=== PATIENT | female | born 1990 | race Caucasian/White ===

== ENCOUNTER 2016-06-11 15:18 | Emergency (ER) | payer BC ==
--- NOTE | ~2016-06-11 | CN ---
Consultation Report [facility] [address] [place]. [address] NAME: APRIL CORTÉS : 86 STATUS : [facility]#: [id number] AGE: 25 ADM/REG DATE : 06/11/16 MR#: [id number] REPORT SERV DATE: 06/11/16 DICTATED BY: ANNALISA SERVIN DATE: 06/11/16 REPORT STATUS : Draft TRANSCRIBED BY: GUS DATE: 06/11/16 NEUROLOGICAL EVALUATION CODE STROKE DATE OF CONSULTATION: 06/11/2016 HISTORY OF PRESENT ILLNESS: This is a 25-year-old white female, who presented to the emergency room with complaints of left-sided weakness. The patient's symptoms apparently started two hours prior to arrival in the emergency room. She stated that she was having weakness and numbness and while in the emergency room, was refusing to move her left arm and left leg to command. The patient did not have any facial weakness. The patient stated she has history of migraines; however, today prior to the onset of her symptoms, she did not have a headache. She was seen by Dr. Gautam, neurologist from [place], who apparently has been treating her for seizure disorder. The patient has been on Keppra 1000 mg twice a day, which as per the patient also was chosen to control her migraines. The patient stated that her migraines at times is so severe that she requires "lidocaine infusion." The patient's stated that her neurologist was going to refer her to pain management to address her recurrent pain related to her migraines. The patient moved here from [facility]. Approximately three years ago, she had a similar episode which took her to the emergency room. She was given tPA; however, as per the patient, her MRI and all the studies were normal. The patient has history of anxiety, stated that she has not been able to obtain any of her medications that she was not able to have an appointment with psychiatric services. FAMILY HISTORY: Significant for history of migraines. SOCIAL HISTORY: The patient smokes one pack of cigarettes per day. Denied use of alcohol. She has one 7 years old daughter. REVIEW OF SYSTEMS: As mentioned in the history of present illness, the patient denied history of trauma. Denied history of recent seizures, her last seizure was six months ago. She stated they were "petit mal." The patient was taken for an emergency CT of the head as per Code Stroke protocol. CT scan of the head was normal. CTA of the neck and brain showed no evidence of abnormalities or occlusion of major vessels. The patient's NIH scale was reported by nursing staff to be 6; however, difficult to evaluate since the patient had decreased voluntary effort on testing. PHYSICAL EXAMINATION: VITAL SIGNS: Blood pressure 115/85, pulse was 103, respirations 20, temperature afebrile. HEAD AND NECK: Showed head to be normocephalic. There was no evidence of trauma. Auscultation of the neck showed no evidence of bruits. EYE: Sclerae were not icteric. Conjunctiva was pink. Consultation Report [address] [address] NAME: APRIL CORTÉS : 86 STATUS : [facility] PAT#: [id number] AGE: 25 ADM/REG DATE : 06/11/16 MR#: [id number] REPORT SERV DATE: 06/11/16 DICTATED BY: ANNALISA SERVIN DATE: 06/11/16 REPORT STATUS : Draft TRANSCRIBED BY: GUS DATE: 06/11/16 ENT: Unremarkable. NECK: Supple. There was no Kernig or Brudzinski. Cervical range of motion was not impaired. CHEST: Symmetrical. LUNGS: Clear to auscultation. HEART: Regular S1, S2. Borderline sinus tachycardia. EXTREMITIES: No clubbing, cyanosis. There is no peripheral edema. ABDOMEN: Mildly obese, soft and nontender. NEUROLOGICAL: The patient was alert, sitting up in bed. I observed the patient moving from the stretcher to the MRI portable table with no difficulty. The patient was standing erect, moved without any help to the portable MRI table; however, she was holding her left hand slightly flexed. The patient refused to move her left arm including performing a shoulder shrug stated that it was not moving. The patient was able to lift her left knee and was complaining of lower back pain. The patient's spontaneous movements were observed in the left foot and left toes. No abnormal movements, jerking movements, or tonic-clonic activities seen. The tone in the left was normal, was not decreased or increased. Deep tender reflexes were symmetrical throughout 1+ over 2. Babinski signs were not elicitable. Sensory exam as per the patient decreased sensation to pinprick light touch including vibration which was split in the midline. The left side of the skull, as per the patient, she was not able to perceive any vibration from the tuning fork, but was able to perceive vibration on the right side of her forehead skull. Cerebellar exam, [id number] and heel to-amezcua on the right was normal. The patient was not moving or performing the maneuver on the left. Her speech was fluent. There was no evidence of aphasia or dysarthria. Thought content and mood appeared appropriate. The patient stated she does not know why she is not moving her left arm. She however, stated that she would be happy to follow with her neurologist and go home if we provide her with a name of psychiatrist or psychiatric services she can follow with since she has been under a great deal of stress. She had recently moved here and has been under a lot of stress. IMPRESSION: No evidence of neurological deficit that could be placed in the category of a stroke or even hemiplegic migraine. The patient at present does not have headache. Her lack of voluntary effort suggest possibly conversion disorder. The patient admits to being under a great deal of stress. All the tests performed. CT of the head, CTA of the head and neck, and the MRI showed no evidence of significant abnormalities to suggest presence of an acute or past strokes. I will leave disposition up to the emergency room physician and if needed, to the IMS Team. The patient was advised to return to see her private neurologist and deleterious effects of smoking on migraines and possible increased risk of stroke secondary to chronic smoking was explained to the patient. The patient was advised not to drive if she has any impairment in terms of motor function, cognitive functions, or increased stress. Taking one baby aspirin a day was also advised as also preventive medication. Thank you allowing me to participate in this patient's care. Consultation Report [address] [place]. [address] NAME: APRIL CORTÉS : 86 STATUS : [facility]#: [id number] AGE: 25 ADM/REG DATE : 06/11/16 MR#: [id number] REPORT SERV DATE: 06/11/16 DICTATED BY: ANNALISA SERVIN DATE: 03/05/17 REPORT STATUS : Draft TRANSCRIBED BY: MODL DATE: 06/11/16 JOSÉA/GUS Annalisa Servin MD / [id number] CC: Elias Lopez
--- NOTE | ~2016-06-11 | EHP ---
ER History and Physical [address] [address] NAME: MYRIAM CORTÉS : 86 STATUS : [facility] PAT#: [id number] AGE: 25 ADM/REG DATE : 06/11/16 MR#: [id number] REPORT SERV DATE: 06/11/16 DICTATED BY: DEBORA CARLISLE DATE: 06/11/16 REPORT STATUS : Draft TRANSCRIBED BY: GUS DATE: 06/11/16 ADDENDUM: Myriam is a 25-year-old female, who presented with acute onset of stroke-like symptoms at 2 o'clock today. The time of my dictation is 1512. She states it was progressive, over 30 minutes loss of sensation on the left side of her body, which progressed to significant weakness on the left-side arm much greater than leg. She states this has happened previously to her when she had a stroke many years ago, when she lived in [place]. She states she had to go to therapy afterwards to regain strength on her left side. Her exam is fairly interesting. She does seem to have altered sensation on the left side, as with very deep pressure I am unable to get a reaction from the patient. She is able to lift her left leg off the bed. However, she is not able to resist active gravity. She is able to move her left arm minimally. Her mink slicer is significantly weakened on the left side. Her strength is weakened much more so on her left arm than her left leg. Her tongue is midline. She is alert and oriented x3. She has no slurred speech. Given the time of onset, the patient's history, and what I think is kind of an interesting exam. I feel like the patient probably has significant she has a mental illness and that this is more related to that. However, I could not get a normal neuro exam from her, so we have called a code stroke. Condition is stable. CMR/MODL Debora Carlisle M.D. / [id number] CC: Elias Lopez M.D.
[2016-06-11 15:36] LABS: BASOPHILS 0.4 %; BASOPHILS ABSOLUTE 0.03 10/3/uL (0.0-0.16); EOSINOPHILS 2.8 %; EOSINOPHILS ABSOLUTE 0.24 10/3/uL (0.0-0.53); ER CBC TAT 0 Hrs 08 Mins; HEMATOCRIT 41.7 % (36.0-48.0); HEMOGLOBIN 14.1 g/dL (12.0-16.0); IMMATURE GRANULOCYTES 0.2 %; IMMATURE GRANULOCYTES ABSOLUTE 0.02 10/3/uL (0.0-0.11); LYMPHOCYTES 25.1 %; LYMPHOCYTES ABSOLUTE 2.14 10/3/uL (0.67-4.30); MEAN CORPUS HGB CONC 33.8 g/dL (32.0-36.0); MEAN CORPUSCULAR HEMOGLOB 30.5 pg (26.0-34.0); MEAN CORPUSCULAR VOLUME 90.3 fL (80-100); MEAN PLATELET VOLUME 10.5 fL (9.2-13.0); MONOCYTES 4.9 %; MONOCYTES ABSOLUTE 0.42 10/3/uL (0.21-1.20); NEUTROPHILS 66.6 %; NEUTROPHILS ABSOLUTE 5.66 10/3/uL (2.02-8.40); PLATELET COUNT 226 10/3/uL (150-400); RBC DISTRIBUTION WIDTH 12.7 % (12.0-16.0); RED CELL COUNT 4.62 10/6/uL (4.0-5.6); WHITE BLOOD CELLS 8.5 10/3/uL (4.5-10.5)
[2016-06-11 15:37] LABS: MANUAL DIFF NO %
[2016-06-11 15:45] LABS: PARTIAL THROMBO TIME 23.1 SEC (22.5-37.2); PROTIME (NOT ORD) 12.8 SEC (12.0-14.5)
[2016-06-11 15:57] LABS: ALBUMIN 3.6 G/DL (3.5-5.0); ALKALINE PHOSPHATASE 91 U/L (45-117); BUN (BLOOD UREA NITROGEN) 8 MG/DL (6-23); CALCIUM, SERUM 8.6 MG/DL (8.5-10.4); CHLORIDE, SERUM 108 MMOL/L (96-112); CO2 (CARBON DIOXIDE) 26 MMOL/L (24-34); CREATININE 0.87 MG/DL (0.55-1.02); GFR AFRICAN AMERICAN 106 ML/MIN (>=60); GFR NON AFRICAN AMERICAN 91 ML/MIN (>=60); GLOBULIN 3.6 G/DL (2.5-4.1); GLUCOSE, SERUM 89 MG/DL (60-99); POTASSIUM, SERUM 4.2 MMOL/L (3.5-5.3); SGOT(AST) 13 U/L (5-40); SGPT(ALT) 17 U/L (5-65); SODIUM, SERUM 139 MMOL/L (135-148); TOTAL BILIRUBIN 0.3 MG/DL (0-1.2); TOTAL PROTEIN 7.2 G/DL (6.0-8.5); TROPONIN I <0.02 NG/ML (<0.05)
[2016-06-11] MEDS ORDERED: LYRICA200 MG PO (16:21)
[2016-06-11] MEDS ORDERED: SEROQUEL50 MG PO (16:21)
[2016-06-11] MEDS ORDERED: PR25 PO (16:27)
[2016-06-11] MEDS ORDERED: AMIT100 PO (16:27)
[2016-06-11] MEDS ORDERED: HABIT21 TOP (16:28)
[2016-06-11] MEDS ORDERED: DIAMSEQ PO (16:29)
[2016-06-11] MEDS ORDERED: THERGRANM PO (16:29)
[2016-06-11] MEDS ORDERED: ZOL100 PO (16:29)
[2016-06-11] MEDS ORDERED: MAGNESIUM PO (16:31)
[2016-06-11] MEDS ORDERED: BEN25 PO (16:31)
[2016-06-11] MEDS ORDERED: B121000P IM (16:31)
[2016-06-11] MEDS ORDERED: CLARIT10 PO (16:31)
[2016-06-11] MEDS ORDERED: NASAL SPRAY NAS (16:34)
[2016-06-11] MEDS ORDERED: TUMSROLL PO (16:34)
[2016-06-13 13:48] LABS: CREATININE 0.8 MG/DL (0.55-1.02)
== END 2016-06-11 17:09 | disposition home or self-care (01) ==
LOC: ER 15:18
PROVIDERS: Specialist
DX: R53.1 Weakness (principal); F32.9 Major depressive disorder, single episode, unspecified; F41.9 Anxiety disorder, unspecified; Z86.73 Personal history of transient ischemic attack (TIA), and cerebral infarction without residual deficits; F17.200 Nicotine dependence, unspecified, uncomplicated; Z88.1 Allergy status to other antibiotic agents; Z88.5 Allergy status to narcotic agent; Z91.040 Latex allergy status; Z79.899 Other long term (current) drug therapy
CPT/HCPCS: 36415; 70450; 70496; 70498; 70551; 71010; 80053; 82962; 84484; 84703; 85025; 85610; 85730; 86850; 86900; 86901; 93005; 99285; Q9967